=== PATIENT | male | born 1995 | race Caucasian/White ===

== ENCOUNTER 2020-03-12 18:14 | Emergency (ER) | payer MEDICAID ==
[2020-03-12] MEDS ORDERED: Bacitracin Oint 1 GM U/D Packet TOP ONE (19:46)
[2020-03-12] MEDS ORDERED: Lidocaine 1% with EPINEPHrine 1:100,000 50 ML MDV SUBCUT ONE (19:46)
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
== END 2020-03-12 21:18 | disposition home or self-care (01) ==
LOC: JP.ED 18:14
DX: S51.812A Laceration without foreign body of left forearm, initial encounter (principal); F17.210 Nicotine dependence, cigarettes, uncomplicated; V86.56XA Driver of dirt bike or motor/cross bike injured in nontraffic accident, initial encounter
CPT/HCPCS: 12002; 99283